=== PATIENT | female | born 1955 | race Two or more races ===

== ENCOUNTER 2017-02-20 20:51 | Emergency (ER) | payer OTHER ==
[2017-02-20] MEDS ORDERED: Ondansetron INJ* 2 MG/ML VIAL IV ONE (22:06)
[2017-02-20] MEDS ORDERED: NS 0.9% 1000 ML* 1,000 ML IV ONE (22:06)
[2017-02-20 22:27] LABS: Hematocrit 43 % (35-47); Hemoglobin 14.3 g/dl (12.0-16.0); Mean Corpuscular HGB Conc 33 g/dl (31-36); Mean Corpuscular Hemoglobin 25 pg (27-31); Mean Corpuscular Volume 76 fL (80-97); Mean Platelet Volume 10 um3 (7.4-10.4); Red Blood Count 5.71 10^6/ul (4.0-5.4); Red Cell Distribution Width 14 % (10.5-15); White Blood Count 7.9 10^3/ul (3.5-10.8)
[2017-02-20 22:30] LABS: Urine Bacteria Absent (Absent); Urine Bilirubin Negative (Negative); Urine Glucose Negative (Negative); Urine Nitrite Negative (Negative)
[2017-02-20 22:39] LABS: ALT 20 U/L (7-52); AST 20 U/L (13-39); Albumin 4.8 g/dL (3.2-5.2); Alkaline Phosphatase 63 U/L (34-104); Anion Gap 10 mmol/L (2-11); BUN/Creatinine Ratio 15.1 (8-20); Blood Urea Nitrogen 11 mg/dL (6-24); C Reactive Protein 1.68 mg/L (< 5.00); CO2 Carbon Dioxide 27 mmol/L (22-32); Chloride 101 mmol/L (101-111); EGFR African American 103.9 (>60); EGFR Non-African American 80.8 (>60); Globulin 2.9 g/dL (2-4); Glucose 111 mg/dL (70-100); Lipase < 10 U/L (11.0-82.0); Magnesium 2.3 mg/dL (1.9-2.7); Potassium 3.2 mmol/L (3.5-5.0); Sodium 138 mmol/L (133-145); Total Protein 7.7 g/dL (6.4-8.9)
--- NOTE | 2017-02-20 23:28 | ED ---
james Knowles Timothy, scribed for Suraj Singh MD on 02/20/17 at 2206 . GI/ HPI - HPI Summary HPI Summary: Kitty Carmona is a 61 yo female presenting to [facility] with N/V and 2/10 pain for the past 3 days. She also notes urinary frequency. She believes she is dehydrated. She is on metaformin and originally attributed her abd pain and nausea to side effects. Her past MHx includes cardia arrythmia, angina, HTN, DM. - History of Current Complaint Chief Complaint: EDNauseaVomitDiarrh Time Seen by Provider: 02/20/17 21:59 Stated Complaint: VOMITING/SHAKEY Hx Obtained From: Patient Onset/Duration: Started Days Ago, Still Present Timing: Constant Severity: Moderate Current Severity: Moderate Pain Intensity: 2 Location of Pain: Diffuse Associated Signs and Symptoms: Positive: Nausea, Vomiting, Other: - dehydration , urinary frequency - Allergy/Home Medications Allergies/Adverse Reactions: Allergies Allergy/AdvReac Type Severity Reaction Status Date / Time No Known Allergies Allergy Verified 02/20/17 22:23 PMH/Surg Hx/FS Hx/Imm Hx Endocrine/Hematology History: Denies: Hx Diabetes - GESTATIONAL DIABETES Cardiovascular History: Reports: Hx Angina, Hx Hypertension Denies: Hx Coronary Artery Disease, Hx Myocardial Infarction, Hx Pacemaker/ ICD History: Denies: Hx Renal Disease Sensory History: Denies: Hx Hearing Aid Psychiatric History: Denies: Hx Panic Disorder - Cancer History Hx Chemotherapy: No Hx Radiation Therapy: No - Surgical History Surgery Procedure, Year, and Place: C SECTION - 1990. ABLATION - HEART - 2012. LAPROSCOPY - EXPLORATORY -1988 Infectious Disease History: Denies: Traveled Outside the [place] in Last 30 Days - Family History Known Family History: Positive: Cardiac Disease, Hypertension Negative: Diabetes - Social History Alcohol Use: None Substance Use Type: Reports: None Smoking Status (MU): Never Smoked Tobacco Review of Systems Constitutional: Other - "dehydrated" Eyes: Negative ENT: Negative Cardiovascular: Negative Respiratory: Negative Positive: Abdominal Pain, Vomiting, Nausea Positive: frequency Musculoskeletal: Negative Skin: Negative Neurological: Negative Psychological: Normal All Other Systems Reviewed And Are Negative: Yes Physical Exam Triage Information Reviewed: Yes Vital Signs On Initial Exam: Initial Vitals Temp Pulse Resp BP Pulse Ox 98.5 F 74 18 170/86 99 02/20/17 21:03 02/20/17 21:03 02/20/17 21:03 02/20/17 21:03 02/20/17 21:03 Vital Signs Reviewed: Yes Appearance: Positive: Well-Appearing, No Pain Distress Skin: Positive: Warm Head/Face: Positive: Normal Head/Face Inspection Eyes: Positive: CARRIE ENT: Positive: Hearing grossly normal Neck: Positive: Supple Respiratory/Lung Sounds: Positive: Clear to Auscultation, Breath Sounds Present Cardiovascular: Positive: RRR Abdomen Description: Positive: Nontender, No Organomegaly, Soft Bowel Sounds: Positive: Present Musculoskeletal: Positive: Strength/ROM Intact Neurological: Positive: Sensory/Motor Intact, Alert, Oriented to Person Place, Time, Normal Gait Psychiatric: Positive: Affect/Mood Appropriate Diagnostics - Vital Signs Vital Signs Temp Pulse Resp BP Pulse Ox 02/20/17 21:03 98.5 F 74 18 170/86 99 - Laboratory Lab Results: Lab Results 02/20/17 02/20/17 02/20/17 Range/Units 22:00 22:00 22:00 WBC 7.9 (3.5-10.8) 10^3/ul RBC 5.71 H (4.0-5.4) 10^6/ul Hgb 14.3 (12.0-16.0) g/dl Hct 43 (35-47) % MCV 76 L (80-97) fL MCH 25 L (27-31) pg MCHC 33 (31-36) g/dl RDW 14 (10.5-15) % Plt Count 207 (150-450) 10^3/ul MPV 10 (7.4-10.4) um3 Neut % (Auto) 63.0 (38-83) % Lymph % (Auto) 28.7 (25-47) % Concho % (Auto) 7.3 (1-9) % Eos % (Auto) 0.7 (0-6) % Baso % (Auto) 0.3 (0-2) % Absolute Neuts (auto) 5.0 (1.5-7.7) 10^3/ul Absolute Lymphs (auto) 2.3 (1.0-4.8) 10^3/ul Absolute Monos (auto) 0.6 (0-0.8) 10^3/ul Absolute Eos (auto) 0.1 (0-0.6) 10^3/ul Absolute Basos (auto) 0 (0-0.2) 10^3/ul Absolute Nucleated RBC 0.01 10^3/ul Nucleated RBC % 0.1 Sodium 138 (133-145) mmol/L Potassium 3.2 L (3.5-5.0) mmol/L Chloride 101 (101-111) mmol/L Carbon Dioxide 27 (22-32) mmol/L Anion Gap 10 (2-11) mmol/L BUN 11 (6-24) mg/dL Creatinine 0.73 (0.51-0.95) mg/dL Est GFR ( Amer) 103.9 (>60) Est GFR (Non-Af Amer) 80.8 (>60) BUN/Creatinine Ratio 15.1 (8-20) Glucose 111 H (70-100) mg/dL Lactic Acid (0.5-2.0) mmol/L Calcium 10.0 (8.6-10.3) mg/dL Magnesium 2.3 (1.9-2.7) mg/dL Total Bilirubin 0.90 (0.2-1.0) mg/dL AST 20 (13-39) U/L ALT 20 (7-52) U/L Alkaline Phosphatase 63 (34-104) U/L C-Reactive Protein 1.68 (< 5.00) mg/L Total Protein 7.7 (6.4-8.9) g/dL Albumin 4.8 (3.2-5.2) g/dL Globulin 2.9 (2-4) g/dL Albumin/Globulin Ratio 1.7 (1-3) Lipase < 10 L (11.0-82.0) U/L Urine Color Colorless Urine Appearance Clear Urine pH 7.0 (5-9) Ur Specific Sibley 1.002 L (1.010-1.030) Urine Protein Negative (Negative) Urine Ketones Negative (Negative) Urine Blood Negative (Negative) Urine Nitrate Negative (Negative) Urine Bilirubin Negative (Negative) Urine Urobilinogen Negative (Negative) Ur Leukocyte Esterase 1+ H (Negative) Urine WBC (Auto) Trace(0-5/hpf) (Absent) Urine RBC (Auto) Absent (Absent) Urine Bacteria Absent (Absent) Urine Glucose Negative (Negative) 02/20/17 Range/Units 22:00 WBC (3.5-10.8) 10^3/ul RBC (4.0-5.4) 10^6/ul Hgb (12.0-16.0) g/dl Hct (35-47) % MCV (80-97) fL MCH (27-31) pg MCHC (31-36) g/dl RDW (10.5-15) % Plt Count (150-450) 10^3/ul MPV (7.4-10.4) um3 Neut % (Auto) (38-83) % Lymph % (Auto) (25-47) % Concho % (Auto) (1-9) % Eos % (Auto) (0-6) % Baso % (Auto) (0-2) % Absolute Neuts (auto) (1.5-7.7) 10^3/ul Absolute Lymphs (auto) (1.0-4.8) 10^3/ul Absolute Monos (auto) (0-0.8) 10^3/ul Absolute Eos (auto) (0-0.6) 10^3/ul Absolute Basos (auto) (0-0.2) 10^3/ul Absolute Nucleated RBC 10^3/ul Nucleated RBC % Sodium (133-145) mmol/L Potassium (3.5-5.0) mmol/L Chloride (101-111) mmol/L Carbon Dioxide (22-32) mmol/L Anion Gap (2-11) mmol/L BUN (6-24) mg/dL Creatinine (0.51-0.95) mg/dL Est GFR ( Amer) (>60) Est GFR (Non-Af Amer) (>60) BUN/Creatinine Ratio (8-20) Glucose (70-100) mg/dL Lactic Acid 1.1 (0.5-2.0) mmol/L Calcium (8.6-10.3) mg/dL Magnesium (1.9-2.7) mg/dL Total Bilirubin (0.2-1.0) mg/dL AST (13-39) U/L ALT (7-52) U/L Alkaline Phosphatase (34-104) U/L C-Reactive Protein (< 5.00) mg/L Total Protein (6.4-8.9) g/dL Albumin (3.2-5.2) g/dL Globulin (2-4) g/dL Albumin/Globulin Ratio (1-3) Lipase (11.0-82.0) U/L Urine Color Urine Appearance Urine pH (5-9) Ur Specific Sibley (1.010-1.030) Urine Protein (Negative) Urine Ketones (Negative) Urine Blood (Negative) Urine Nitrate (Negative) Urine Bilirubin (Negative) Urine Urobilinogen (Negative) Ur Leukocyte Esterase (Negative) Urine WBC (Auto) (Absent) Urine RBC (Auto) (Absent) Urine Bacteria (Absent) Urine Glucose (Negative) Result Diagrams: 02/20/17 22:00 02/20/17 22:00 Lab Statement: Any lab studies that have been ordered have been reviewed, and results considered in the medical decision making process. - EKG 2150 Cardiac Rate: NL - 65 BPM EKG Interpretation: NSR @ 65 BPM, normal EKG Re-Evaluation - Re-Evaluation First Eval Change: Improved - tolerating po GIGU Course/Dx - Course Assessment/Plan: Kitty Carmona is a 61 yo female presenting to [facility] with 3/10 abd pain, N/V and urinary frequency, feeling "dehydrated" since her Sx began 3 days ago. In the ED course she received IV fluids and zofran to control her nausea. Her EKG was WNL. After clinical examination and review of her lab studies she will be discharged with nausea and vomiting with appropriate instructions. - Diagnoses Provider Diagnoses: Nausea and vomiting Discharge - Discharge Plan Condition: Improved Disposition: HOME Patient Education Materials: Acute Nausea and Vomiting (ED) Referrals: Lauren Tsang MD [Primary Care Provider] - 2 Days Additional Instructions: Please follow up with your primary care physician regarding your visit to the emergency department today. Return to the emergency department with any new or recurring symptoms. The documentation as recorded by the james chua Timothy accurately reflects the service I personally performed and the decisions made by me, Suraj Singh MD.
[2017-02-21 01:10] VITALS: BP 155/80
== END 2017-02-21 00:45 | disposition home or self-care (01) ==
LOC: ED 20:51
DX: R11.2 Nausea with vomiting, unspecified (principal); R35.0 Frequency of micturition; E11.9 Type 2 diabetes mellitus without complications; Z79.84 Long term (current) use of oral hypoglycemic drugs; I20.9 Angina pectoris, unspecified; I10 Essential (primary) hypertension
CPT/HCPCS: 36415; 80053; 81003; 81015; 83605; 83690; 83735; 85025; 86140; 87086; 93005; 96361; 96374; 99283; J2405

== ENCOUNTER 2019-03-07 11:06 | Observation (INO) | payer OTHER ==
--- NOTE | 2019-03-07 11:28 | ED ---
HPI Chest Pain - HPI Summary HPI Summary: The patient is a 63 y/o F presenting to [facility] with a chief complaint of sudden onset left anterior CP starting approximately an hour ago. She states that the pain radiated into the posterior left arm, but the chest pressure has since resolved. The arm pain is currently rated 4/10 in severity. She notes that four days ago, she was at the gym and went into atrial fibrillation that resolved suddenly on its own, so she called Dr. Amos, cardiology, who stated that since it had been enough time, she was okay to stay home. She then had the CP today, causing her to come into the ED. She denies SOB, nausea, vomiting, and abd pain. No medications FINE SANDER to treat the pain. Hx of HTN, atrial fibrillation with ablation in 2012. FHx of cardiac disease. Nonsmoker, no EtOH, no substance use. - History of Current Complaint Chief Complaint: EDChestPainROMI Time Seen by Provider: 03/07/19 11:13 Hx Obtained From: Patient Onset/Duration: Started Minutes Ago - an hour FINE SANDER, Resolved - CP resolved, arm pain still present Timing: Lasting Minutes Initial Severity: Moderate Current Severity: Mild Pain Intensity: 4 Pain Scale Used: 0-10 Numeric Chest Pain Location: Left Anterior Chest Pain Radiates: Yes Chest Pain Radiates To:: Arm - left posterior Aggravating Factor(s): Nothing Alleviating Factor(s): Nothing Associated Signs and Symptoms: Positive: Chest Pain - (resolved) but radiates into left posterior arm. Negative: Shortness of Breath, Nausea, Abdominal Pain , Vomiting - Allergy/Home Medications Allergies/Adverse Reactions: Allergies Allergy/AdvReac Type Severity Reaction Status Date / Time No Known Allergies Allergy Verified 03/07/19 11:12 Home Medications: Home Medications Atorvastatin* [Lipitor 10 MG*] 10 mg PO DAILY 03/07/19 [History Confirmed ] PARoxetine HCl [Paroxetine ER] 25 mg PO DAILY 03/07/19 [History Confirmed ] PMH/Surg Hx/FS Hx/Imm Hx Endocrine/Hematology History: Denies: Hx Diabetes - GESTATIONAL DIABETES Cardiovascular History: Reports: Hx Angina, Hx Hypertension Denies: Hx Coronary Artery Disease, Hx Hypercholesterolemia, Hx Myocardial Infarction, Hx Pacemaker/ICD History: Denies: Hx Renal Disease Musculoskeletal History: Denies: Hx Rheumatoid Arthritis, Hx Osteoporosis Sensory History: Denies: Hx Hearing Aid Psychiatric History: Denies: Hx Panic Disorder - Cancer History Hx Chemotherapy: No Hx Radiation Therapy: No - Surgical History Surgery Procedure, Year, and Place: C SECTION - 1990. ABLATION - HEART - 2012. LAPROSCOPY - EXPLORATORY -1988 Infectious Disease History: No Infectious Disease History: Denies: Traveled Outside the [place] in Last 30 Days - Family History Known Family History: Positive: Cardiac Disease, Hypertension Negative: Diabetes - Social History Alcohol Use: None Hx Substance Use: No Substance Use Type: Reports: None Hx Tobacco Use: No Smoking Status (MU): Never Smoked Tobacco Do You Chew or Dip Tobacco: No Have You Chewed or Dipped Tobacco in the LAST YEAR: No Have You Smoked in the Last Year: No Review of Systems Positive: Chest Pain - left anterior (resolved) Negative: Shortness Of Breath Negative: Abdominal Pain, Vomiting, Nausea Positive: Other - left posterior arm pain All Other Systems Reviewed And Are Negative: Yes Physical Exam - Summary Physical Exam Summary: VITAL SIGNS: Reviewed. GENERAL: Patient is a well-developed and nourished female who is lying comfortable in the stretcher. Patient is not in any acute respiratory distress. HEAD AND FACE: No signs of trauma. No ecchymosis, hematomas or skull depressions. No sinus tenderness. EYES: PERRLA, EOMI x 2, No injected conjunctiva, no nystagmus. EARS: Hearing grossly intact. Ear canals and tympanic membranes are within normal limits. MOUTH: Oropharynx within normal limits. NECK: Supple, trachea is midline, no adenopathy, no JVD, no carotid bruit, no c- spine tenderness, neck with full ROM. CHEST: Symmetric, no tenderness at palpation LUNGS: Clear to auscultation bilaterally. No wheezing or crackles. CVS: Regular rate and rhythm, S1 and S2 present, no murmurs or gallops appreciated. ABDOMEN: Soft, non-tender. No signs of distention. No rebound no guarding, and no masses palpated. Bowel sounds are normal. EXTREMITIES: FROM in all major joints, no edema, no cyanosis or clubbing. NEURO: Alert and oriented x 3. No acute neurological deficits. Speech is normal and follows commands. SKIN: Dry and warm. Triage Information Reviewed: Yes Vital Signs On Initial Exam: Initial Vitals Temp Pulse Resp BP Pulse Ox 97.4 F 70 16 147/86 96 06/15/19 11:11 03/07/19 11:11 03/07/19 11:11 03/07/19 11:11 03/07/19 11:11 Vital Signs Reviewed: Yes Diagnostics - Vital Signs Vital Signs Temp Pulse Resp BP Pulse Ox 03/07/19 11:11 97.4 F 70 16 147/86 96 - Laboratory Result Diagrams: 03/08/19 05:04 03/08/19 05:04 Lab Statement: Any lab studies that have been ordered have been reviewed, and results considered in the medical decision making process. - Radiology CXR Radiology Interpretation Completed By: Radiologist Summary of Radiographic Findings: No active cardiopulmonary disease. ED physician has reviewed this radiology report. - EKG 1113 Cardiac Rate: NL - 70 NSR EKG Rhythm: Sinus Rhythm EKG Comparison: No Significant Change - Similar to EKG taken on 02/20/2017. Summary of EKG Findings: Nml axis. No ST elevations. 1509 Cardiac Rate: Other Rate - 119 BPM EKG Rhythm: Atrial Fibrillation EKG Comparison: Other - Atrial fibrillation new from first EKG taken today 03/07, but hx of afib in patient Summary of EKG Findings: RVR. No ST elevations. Re-Evaluation - Re-Evaluation First Eval Re-Evaluation Time: 14:55 Comment: I discussed discharge with the patient. Second Eval Re-Evaluation Time: 15:15 Comment: I discussed admission with the patient due to episode of atrial fibrillation. Chest Pain Course/Dx - Course Assessment/Plan: The patient is a 63 y/o F presenting to [facility] with a chief complaint of sudden onset left anterior CP starting approximately an hour ago. She states that the pain radiates into the posterior left arm, but the chest pressure has since resolved. The arm pain is currently rated 4/10 in severity. She notes that four days ago, she was at the gym and went into atrial fibrillation that resolved suddenly on its own, so she called Dr. Amos, cardiology, who stated that since it had been enough time, she was okay to stay home. She then had the CP today, causing her to come into the ED. She denies SOB , nausea, vomiting, and abd pain. No medications FINE SANDER to treat the pain. Hx of HTN, atrial fibrillation with ablation in 2012. FHx of cardiac disease. Nonsmoker, no EtOH, no substance use. Blood work without any significant abnormality, and 2 troponins 4 hours apart 0.01 and 0.00. I discussed the findings and test results with patient and was afraid she was ready to be discharged home with follow-up with primary care physician and cardiology. However before discharge the patient developed again an episode of atrial fibrillation with RVR and 119 bpm. Therefore, I believe that the patient is having paroxysmal urgent fibrillation. Patient was given cardizem. At this point I discussed my physical exam and findings with Dr. Jaffe from the hospitalist services who accepted the patient for admission. Patient is hemodynamically stable alert and oriented 3. - Diagnoses Provider Diagnoses: Atrial fibrillation with RVR, Chest pain - Provider Notifications Discussed Care Of Patient With: Susannah Jaffe - hospitalist Time Discussed With Above Provider: 14:58 Instructed by Provider To: Other - I discussed the patient's case with Dr. Jaffe, and she accepts the patient for admossion at this time. I also discussed the case with Dr. Suárez, cardiology, who agrees with admission. - Critical Care Time Critical Care Time: 30-74 min Discharge - Sign-Out/Discharge Documenting (check all that apply): Patient Departure - Patient is accepted for admission by Dr. Jaffe. Patient Received Moderate/Deep Sedation with Procedure: No - Discharge Plan Condition: Stable Disposition: ADMITTED TO [facility] - Billing Disposition and Condition Condition: STABLE Disposition: Admitted to [facility] - Attestation Statements Document Initiated by Amber: Yes Documenting Scribe: aNno Marcus Provider For Whom Amber is Documenting (Include Credential): Dr. Eliseo Novak MD Scribe Attestation: Nano Knowles scribed for Dr. Eliseo Novak MD on 03/08/19 at 1755. Scribe Documentation Reviewed: Yes Provider Attestation: The documentation as recorded by the Nano chua accurately reflects the service I personally performed and the decisions made by me, Dr. Eliseo Novak MD Status of Scribphu Document: Viewed
[2019-03-07 12:18] LABS: ABS Eosinophils 0.1 10^3/ul (0-0.6); ABS Lymphocytes 1.4 10^3/ul (1.0-4.8); ABS Monocytes 0.5 10^3/ul (0-0.8); ABS Neutrophils 2.7 10^3/ul (1.5-7.7); Eosinophil % 2.8 %; Hematocrit 39 % (35-47); Hemoglobin 12.7 g/dL (12.0-16.0); Lymphocyte % 29.3 %; Mean Corpuscular HGB Conc 33 g/dL (31-36); Mean Corpuscular Hemoglobin 25 pg (27-31); Mean Corpuscular Volume 77 fL (80-97); Mean Platelet Volume 9.7 fL (7.4-10.4); Nucleated Red Blood Cells % 0.1; Platelet Count 180 10^3/uL (150-450); Red Blood Count 5.08 10^6 /uL (3.70-4.87); Red Cell Distribution Width 14 % (10-15); White Blood Count 4.7 10^3/uL (3.5-10.8)
[2019-03-07 12:30] LABS: Activated Partial Thrombo Time 33.9 seconds (26.0-38.0); INR 1.13 (0.82-1.09)
[2019-03-07 12:35] LABS: Albumin 4.2 g/dL (3.2-5.2); Albumin/Globulin Ratio 1.7 (1-3); BUN/Creatinine Ratio 25.7 (8-20); Calcium 9.4 mg/dL (8.6-10.3); EGFR African American 101.9 (>60); EGFR Non-African American 84.2 (>60); Globulin 2.5 g/dL (2-4); Magnesium 2.2 mg/dL (1.9-2.7); Potassium 4.1 mmol/L (3.5-5.0); Total Bilirubin 0.7 mg/dL (0.2-1.0); Total Protein 6.7 g/dL (6.4-8.9)
[2019-03-07 12:37] LABS: Troponin I 0.01 ng/mL (<0.04)
[2019-03-07 12:39] LABS: CKMB ng/mL 2.7 ng/mL (0.6-6.3)
[2019-03-07] MEDS ORDERED: Acetaminophen TAB* 325 MG PO ONE (14:10)
[2019-03-07 14:20] LABS: TSH (Thyroid Stimulating Horm) 1.4 mcIU/mL (0.34-5.60)
[2019-03-07] MEDS ORDERED: Diltiazem IV push/loading dose 5 MG/ML 5 ML vial (25 mg) IV SLOW PU ONE ×2 (15:16)
[2019-03-07] MEDS ORDERED: NS 0.9% 1000 ML** 1,000 ML IV.FLUID IV ONE (16:00)
[2019-03-07] MEDS ORDERED: Acetaminophen TAB* 325 MG PO PRN (16:10)
[2019-03-07] MEDS ORDERED: Ondansetron INJ* 2 MG/ML VIAL IV PRN (16:10)
[2019-03-07] MEDS ORDERED: Nitroglycerin TAB 0.4 MG* 0.4 MG TAB SL PRN (16:11)
[2019-03-07] MEDS ORDERED: Nitroglycerin TAB 0.4 MG* 0.4 MG TAB SL ONE (16:16)
[2019-03-07] MEDS ORDERED: Metoprolol Succinate XL TAB* 25 MG PO SCH ×2 (18:00→21:00)
--- NOTE | 2019-03-07 18:30 | HP ---
HISTORY AND PHYSICAL: ADDENDUM: This case was reviewed and discussed with MISTI Garibay. Ms. Carmona is a 63-year-old lady with past medical history of paroxysmal atrial fibrillation who underwent ablation. She presents to the emergency room with complaints of chest pain and palpitations and was noted to be in and out of atrial fibrillation. Her workup so far is remarkable for 2 negative troponins and her EKG did not show any acute ischemic changes. The plan is to have her admitted for rate control and anticoagulation should be resumed as it is unclear for how long she has been having AFib again. I am in agreement with the current management. [id number]/CPS #: [id number] MTDD
[2019-03-07] MEDS: Lisinopril TAB* 10 MG PO SCH (20:42)
[2019-03-07] MEDS: Potassium Chlor TAB* 10 MEQ TAB.ER PO SCH (20:43)
[2019-03-07] MEDS: CMCS Dabigatran CAP(NF) 150 MG CAP PO SCH (20:44)
[2019-03-07] MEDS ORDERED: traZODone TAB* 50 MG TAB PO SCH (21:00)
--- NOTE | 2019-03-07 21:13 | HP ---
ATTENDING ADDENDUM NOW INCLUDED ON THIS REPORT CC: Dr. Lauren Tsang * ADMISSION HISTORY AND PHYSICAL: DATE OF ADMISSION: 03/07/19 PRIMARY CARE PROVIDER: Dr. Lauren Tsang. MY ATTENDING WHILE IN THE HOSPITAL: Dr. Idris Devine.* (DICTATED BY MISTI MEDEL) CHIEF COMPLAINT: Chest pain x1 day. HISTORY OF PRESENT ILLNESS: Ms. Carmona is a 63-year-old female with past medical history significant for remote history of paroxysmal AFib, status post 2 cardioversions, ablation, currently off all rhythm and rate control medications, obstructive sleep apnea, hypertension, diabetes mellitus type 2, who was in her normal state of health with excellent exercise capacity until last 03/04/19, when she was exercising vigorously and felt as if she went back into AFib with some pain in her chest radiating into her left arm, which she did not feel was musculoskeletal in origin. She was able to do vagal maneuvers that she had previously been taught, and felt like she converted back to her normal rhythm and again returned to her normal state of health until this morning when she was relaxing around her house, had a cup of coffee and then had recurrence of feeling of palpitations and pain in her chest radiating into her arm. The patient then came into the emergency department to be evaluated. The patient in the emergency department was found to be in normal sinus rhythm with no EKG changes. The patient had initially normal troponin, nonischemic EKG, and had persistent pain in her left arm, worse with movement, not reproducible with palpation. The patient was normotensive and was being prepared to be discharged from the emergency department when her heart rate was noted to be tachycardic and irregular, the patient was found to be in atrial fibrillation with rates up to 130s. The patient denied dizziness. The patient had some worsening in her arm pain while in AFib. The patient has had no recent illnesses. No recent changes to medications. No fevers, chills, dysuria , abdominal pain, diarrhea, and again has felt generally well. The patient was given 20 mg IV diltiazem which brought her heart rate down to the 80s; however, the patient at that time had several multi-second pauses, the longest of which was 3.8 seconds during which she was dizzy and felt as if she was going to pass out. Due to concern for AFib with RVR and chest pain, we were asked to evaluate the patient for admission to the hospital. PAST MEDICAL HISTORY: Obstructive sleep apnea, noncompliant with BiPAP; AFib; hypertension; diabetes mellitus type 2, polycystic ovarian syndrome. PAST SURGICAL HISTORY: Cardiac ablation, , and laparoscopy with ovarian resection. MEDICATIONS: 1. Trazodone 50 mg p.o. nightly as needed. 2. Lisinopril 5 mg p.o. b.i.d. 3. Amlodipine 5 mg p.o. daily. 4. Potassium chloride 10 mEq p.o. b.i.d. 5. Lipitor 10 mg p.o. daily. 6. Paroxetine 25 mg p.o. daily. 7. Multivitamin. ALLERGIES: HAY FEVER. FAMILY HISTORY: The patient's mother of colon cancer at the age 95, the patient's father of pancreatic cancer at age 76. Both of them had TX's when they were young. The patient has a brother who is alive and had an TX in his 50s. SOCIAL HISTORY: The patient never smoked, drinks occasionally. The patient denies illicit drug use. The patient is retired computer aided design technician. The patient is and has 2 kids. The patient's , Sundar Carmona, will be her surrogate decision maker. REVIEW OF SYSTEMS: A 14-point review of systems was reviewed and is negative except as above in the HPI. PHYSICAL EXAMINATION GENERAL: The patient is a 63-year-old female who appears stated age, sitting comfortably in bed, in no acute distress. VITAL SIGNS: At the time of evaluation, temperature 97.4, pulse rate 79, respiratory rate 17, oxygen saturation 99% on room air, and blood pressure 131/ 73. HEENT: Head: Normocephalic, atraumatic. Sclerae anicteric. No conjunctival injection. Nasal mucosa moist. Oral mucosa moist. No pharyngeal erythema, discharge, or exudate. NECK: Supple, nontender. No lymphadenopathy. No carotid bruits auscultated. No JVD. RESPIRATORY: Clear to auscultation bilaterally. No wheezes, rales, or rhonchi. Good air exchange bilaterally. CARDIAC: Tachycardic. No clicks, murmurs, gallops, or rubs. Pulses are 2+ in the bilateral dorsalis pedis, posterior tibialis, and radial areas. ABDOMEN: Soft, nontender, nondistended. Bowel sounds present and normoactive in all 4 quadrants. No hepatosplenomegaly. No abdominal bruits auscultated. No hepatojugular reflux. GENITOURINARY: No suprapubic or CVA tenderness. SKIN: Clean, dry and no rashes. NEURO: Cranial nerves II through XII intact. No focal deficits. Alert and oriented x3. PSYCHIATRIC: Pleasant and cooperative. DIAGNOSTIC STUDIES/LAB DATA: White blood cell count 4.7, hemoglobin 12.7, MCV 77, MCH 25. Platelet count 180. INR 1.13, APTT 33.9. Sodium 142, potassium 4.0, chloride 106, carbon dioxide 31, anion gap 5, BUN 18, creatinine 0.7, glucose 95, lactic acid 0.8, calcium 9.4, magnesium 2.2. Bilirubin 0.7, AST 25 , ALT 33, alkaline phosphatase is 64. Creatine kinase 167, CK-MB 2.7, troponin I of 0.00 x2. BNP is 39, protein 6.7, albumin 3.7, globulin 2.5, TSH 1.4. Chest x-ray read as no active cardiopulmonary disease. Initial electrocardiogram shows normal sinus rhythm, rate of 70, QTc of 461. Normal axis. No hypertrophy or enlargement. Repeat EKG shows atrial fibrillation, rate of 119, QTc of 493. No ST segment elevation or depression. Normal axis. Wandering baseline. Repeat EKG shows atrial fibrillation, rate of 78, otherwise no significant changes. ASSESSMENT AND PLAN: Impression: Ms. Carmona is a 63-year-old female with a past medical history significant for paroxysmal atrial fibrillation, status post ablation, obstructive sleep apnea, hypertension, diabetes, who presents to the emergency department with left arm and a sensation of palpitations consistent with previous episodes of atrial fibrillation. The patient was found to be in atrial fibrillation with persistent left arm pain. The patient will be admitted to the hospital for rule out myocardial infarction and initiation of chronic therapy for atrial fibrillation. 1. Paroxysmal atrial fibrillation: The patient is currently going in and out of atrial fibrillation. The patient will be anticoagulated with Pradaxa which she has previously tolerated. Will be rate controlled with metoprolol; this may also provide rhythm control given patient's rapidly fluctuating nature. The patient had long pause when given diltiazem; this is likely related to dose and not likely related to tachy-chely syndrome or sick sinus syndrome. This case has been discussed with Dr. Rashel Suárez who is in agreement. The patient's chest pain was discussed, and given her lack of ischemic changes, negative troponins to date and TALIB score of 1, it was determined that the patient did not need any inpatient stress test. The patient had an exercise stress test in 2016, which was normal. The patient's heart rate will be controlled, and if she is ruled out, the patient may follow up outpatient with her preschool assistant teacher, Dr. Fredy Amos, for discussion of further rhythm versus rate control strategies and possible need for further ischemic workup. 2. Chest pain: See above discussion. The patient's TALIB risk score is 1. Unless cardiac marker comes up positive or repeat morning EKG shows ischemic changes, the patient does not need an inpatient stress test which will not be available until Saturday. We will add on a lipid profile and hemoglobin A1c for risk stratification. 3. Hypertension: The patient is currently normotensive. Hold patient's amlodipine, continue patient's lisinopril, start patient on metoprolol. 4. Diabetes mellitus type 2: The patient states that her diabetes is very well controlled. Update A1c. . 5. Microcytosis: The patient has microcytosis, but no anemia. We will check patient's iron studies. Further workup pending these studies. 6. Obstructive sleep apnea: The patient is noncompliant with CPAP or BiPAP. It is unclear why this is. We would recommend patient use these and have repeat sleep study if needed. 7. DVT prophylaxis: Pradaxa. TIME SPENT: Approximately 60 minutes was spent on the admission of this patient ; 30 of which was spent [id number] with the patient obtaining history and physical and discussing treatment plan. This plan was discussed with my attending Dr. Idris Devine, and she is in agreement. MISTI MEDEL ADDENDUM: This case was reviewed and discussed with MISTI Medel. Ms. Carmona is a 63-year-old lady with past medical history of paroxysmal atrial fibrillation who underwent ablation. She presents to the emergency room with complaints of chest pain and palpitations and was noted to be in and out of atrial fibrillation. Her workup so far is remarkable for 2 negative troponins and her EKG did not show any acute ischemic changes. The plan is to have her admitted for rate control and anticoagulation should be resumed as it is unclear for how long she has been having AFib again. I am in agreement with the current management. IDRIS Devine MD [id number]/CPS #: [id number]/CPS #: [id number] JOE
[2019-03-08 03:23] VITALS: BP 115/58
[2019-03-08 05:26] LABS: ABS Basophils 0.1 10^3/ul (0-0.2); ABS Eosinophils 0.2 10^3/ul (0-0.6); ABS Lymphocytes 2.1 10^3/ul (1.0-4.8); ABS Monocytes 0.5 10^3/ul (0-0.8); Eosinophil % 3.4 %; Hematocrit 38 % (35-47); Hemoglobin 12.8 g/dL (12.0-16.0); Lymphocyte % 35.8 %; Mean Corpuscular HGB Conc 33 g/dL (31-36); Mean Corpuscular Hemoglobin 26 pg (27-31); Mean Corpuscular Volume 77 fL (80-97); Mean Platelet Volume 9.6 fL (7.4-10.4); Platelet Count 176 10^3/uL (150-450); Red Blood Count 4.99 10^6 /uL (3.70-4.87); Red Cell Distribution Width 14 % (10-15); White Blood Count 5.9 10^3/uL (3.5-10.8)
[2019-03-08 05:39] LABS: BUN/Creatinine Ratio 25.7 (8-20); Calcium 9.2 mg/dL (8.6-10.3); EGFR African American 101.9 (>60); EGFR Non-African American 84.2 (>60); HDL Cholesterol 46.1 mg/dL; Magnesium 2.2 mg/dL (1.9-2.7); Potassium 3.9 mmol/L (3.5-5.0)
[2019-03-08 08:48] LABS: Hepatitis C Antibody Negative (Negative)
[2019-03-08] MEDS ORDERED: Multivitamins/Minerals TAB PO SCH (09:00)
[2019-03-08] MEDS ORDERED: Atorvastatin* 10 MG TAB PO SCH (09:00)
[2019-03-08] MEDS ORDERED: Metoprolol Succinate XL TAB* 25 MG PO SCH ×2 (09:00→18:00)
[2019-03-08] MEDS ORDERED: PARoxetine HCL TAB* 20 MG PO SCH (09:00)
[2019-03-08] MEDS: Potassium Chlor TAB* 10 MEQ TAB.ER PO SCH (09:24)
[2019-03-08] MEDS: Lisinopril TAB* 10 MG PO SCH (09:24)
[2019-03-08] MEDS: CMCS Dabigatran CAP(NF) 150 MG CAP PO SCH (09:25)
--- NOTE | 2019-03-08 19:25 | DS ---
CC: Dr. Fredy Amos; Dr. Lauren Tsang * DISCHARGE SUMMARY: DATE OF ADMISSION: 03/07/19 DATE OF DISCHARGE: 03/08/19 PRIMARY CARE PROVIDER: Dr. Lauren Tsang. MY ATTENDING WHILE IN THE HOSPITAL: Dr. Viraj Del Rosario.* (DICTATED BY MISTI MEDEL) OUTPATIENT TIRE LAYER: Dr. Fredy Amos. PRIMARY DISCHARGE DIAGNOSES: 1. Atrial fibrillation with rapid ventricular response. 2. Chest pain. SECONDARY DISCHARGE DIAGNOSES: 1. Obstructive sleep apnea. 2. Hypertension. 3. Diabetes mellitus type 2. 4. History of polycystic ovarian syndrome. STUDIES DONE WHILE IN THE HOSPITAL: EKG from 03/07/19 shows normal sinus rhythm , rate of 70, QTc of 461. No ST-segment elevation or depression. Normal axis. No hypertrophy or enlargement. Repeat EKG from 03/07/19 shows atrial fibrillation, rate of 119, QTc of 493. No other significant changes from previous exam. Repeat EKG from 03/07/19 shows AFib, rate of 78. No other significant changes. Repeat EKG from 03/08/19 shows sinus bradycardia. No significant changes from previous exam. Chest x-ray read as no active cardiopulmonary disease. MEDICATIONS AT DISCHARGE: 1. Trazodone 50 mg p.o. at bedtime. 2. Potassium chloride 10 mEq p.o. b.i.d. 3. Multivitamin 1 tab p.o. daily. 4. Lisinopril 10 mg p.o. daily. 5. Lipitor 10 mg p.o. daily. 6. Paroxetine 25 mg p.o. daily. 7. Tylenol 650 mg p.o. q.6 hours as needed. 8. Pradaxa 150 mg p.o. b.i.d. 9. Metoprolol succinate 12.5 mg p.o. nightly. New Medications at Discharge: 1. Tylenol. 2. Pradaxa. 3. Metoprolol. Medication Discontinued at Discharge: 1. Amlodipine. HOSPITAL COURSE: This is a brief summary of the patient's presentation. For more details, please see the history and physical from MISTI Medel, on . In brief, the patient is a 63-year-old female with past medical history significant for above who presented with 1 episode of chest pressure with palpitations 3 days before her admission on 03/04/19, which she was able to abort with vagal maneuvers and felt like her previous episodes of AFib. She then again had an episode of chest pain on the day of her presentation with what she felt to be AFib. By the time she presented to the emergency department , her chest pain had decreased. She was not in atrial fibrillation and she had 2 negative troponins and was going to be discharged from the emergency department, when she was noted to be tachycardic with an irregularly irregular rhythm and EKG confirmed atrial fibrillation. With this, her chest and arm pain became somewhat worse; however, this pain is reproduced with palpation and worse with movement of her left arm. The patient in the emergency department was given diltiazem 20 mg IV push, which decreased her heart rate from the 110s to the 60s. The patient during this time had several pauses, the maximum of which was 3.8 seconds with which she was dizzy. The patient was given fluids at that time and her dizziness resolved. The patient was admitted to the hospital. The patient had 3 negative troponins. The patient had a lipid panel which was well within normal range. The patient had A1c, which was 6.5, which is consistent with her previous results. The patient is not on any medications. The patient's blood sugar was well controlled while in the hospital. The patient went in and out of AFib numerous times while in the hospital, particularly in the emergency department overnight. The patient was started on metoprolol succinate at initially 25 mg daily with 1 dose given on the evening of 03/07/19. The patient's heart rate was running on the low side, though she was entirely asymptomatic with no chest pain, no dizziness, and no pauses in the morning of 03/07/19; however, the patient's metoprolol dose was decreased due to bradycardia and sinus rhythm. The patient was stable and amenable for discharge on 03/08/19. PHYSICAL EXAMINATION ON THE DAY OF DISCHARGE: General: The patient is a 63- year- old female who appears stated age and is sitting comfortably in the bed, in no acute distress. Vital Signs: At the time of evaluation, temperature 96.7 , pulse rate 54, respiratory rate 18, oxygen saturation 97% on room air, blood pressure 115/58. HEENT: Head normocephalic, atraumatic. Sclerae anicteric. No conjunctival injection. Nasal mucosa moist. Oral mucosa moist. No pharyngeal erythema, discharge, or exudates. Neck: Supple and nontender. No lymphadenopathy. No carotid bruits. No JVD. Cardiac: Regular rate and rhythm. No clicks, murmurs, gallops, or rubs. Pulses are 2+ in the bilateral dorsalis pedis, posterior tibialis and radial areas. Respiratory: Clear to auscultation bilaterally. No wheezes, rales, or rhonchi. Good air exchange bilaterally. Abdomen: Soft, nontender, nondistended. Bowel sounds present. Normoactive in all 4 quadrants. No hepatosplenomegaly. No abdominal bruits auscultated. No hepatojugular reflux. Genitourinary: No suprapubic or CVA tenderness. Skin: Clean, dry, and intact. No rash. Neuro: Cranial nerves II through XII intact. No other focal deficits. Alert and oriented x3. Psychiatric: Pleasant and cooperative. DISCHARGE PLAN: The patient will be discharged to home. The patient has been adequately rate controlled with metoprolol while she was in atrial fibrillation and she is currently in sinus rhythm. Metoprolol should also provide nominal rhythm control. The patient should follow up in a short interval with her exploration manager for further discussion of possible antiarrhythmic medications as she has tolerated these well previously in the past and possible repeat ablation as well as possible Holter monitor or long-term monitoring to assess the burden of her atrial fibrillation. The patient will be anticoagulated with Pradaxa per her request as she has been on this before. The patient was ruled out for a myocardial infarction with 3 negative troponins. The patient's diabetes is well under control with diet and exercise. The patient requires no escalation of her Lipitor therapy. The patient's case was discussed inpatient with Dr. Rashel Suárez of cardiology, who did not recommend an inpatient stress test. The patient should discuss with her outpatient exploration manager the possibility of an outpatient stress test. The patient had microcytosis while in the hospital with an elevated RBC count with a normal hemoglobin. This should be evaluated with the patient's outpatient provider for possible iron deficiency versus thalassemia. The patient should return to the hospital for severe chest pain, passing out, shortness of breath, or other alarming symptoms. The patient should follow up with her primary care provider within 1 week or when available. The patient should have a heart-healthy diet and avoid caffeine as this appeared to have been the trigger for her atrial fibrillation. Engage in activity as tolerated, avoiding excessively strenuous activity as this also appears to have been a trigger. TIME SPENT: Approximately 60 minutes were spent on the discharge of this patient, 30 of which were spent [id number] with the patient, obtaining my history and physical, and discussing my treatment plan. MISTI MEDEL [id number]/CPS #: [id number] JOE
== END 2019-03-08 10:00 | disposition home or self-care (01) ==
LOC: ED 11:06 → MEDTELE 16:10
PROVIDERS: ADMIT Internal Medicine; ATTEND Internal Medicine
DX: I48.2 Chronic atrial fibrillation (principal); R07.9 Chest pain, unspecified; G47.33 Obstructive sleep apnea (adult) (pediatric); I10 Essential (primary) hypertension; E11.9 Type 2 diabetes mellitus without complications; E28.2 Polycystic ovarian syndrome
CPT/HCPCS: 36415; 71045; 80048; 80053; 80061; 82550; 82553; 83036; 83605; 83735; 83880; 84443; 84484; 85025; 85610; 85730; 86803; 93005; 96374; 99283; A9270-GY; G0378